=== PATIENT | male | born 1960 ===

== ENCOUNTER 2016-10-03 11:03 | Day surgery (SDC) | payer OTHER ==
[2016-10-03] MEDS ORDERED: BUPIVACAINE HCL 0.5% MPF 10 ML SOL ONE (11:55)
[2016-10-03] MEDS: TRIAMCINOLONE ACETONIDE 40 MG/ML SUS ONE ×2 (12:07→12:14)
[2016-10-03 12:27] VITALS: BP 136/77; PULSE 68; RESP 18; O2SAT 95
== END 2016-10-03 12:29 | disposition home or self-care (01) ==
LOC: SURG 11:03
PROVIDERS: ATTEND Nurse Anesthetist, Certified Registered
DX: M12.88 Other specific arthropathies, not elsewhere classified, other specified site (principal); M54.5 Low back pain
CPT/HCPCS: 64493; 77003; J3300

== ENCOUNTER 2016-11-07 11:47 | Day surgery (SDC) | payer OTHER ==
[2016-11-07 12:20] VITALS: RESP 16
[2016-11-07] MEDS ORDERED: TRIAMCINOLONE ACETONIDE 40 MG/ML SUS ONE (12:54)
[2016-11-07] MEDS ORDERED: BUPIVACAINE HCL 0.5% MPF 10 ML SOL ONE (12:54)
[2016-11-07] MEDS ORDERED: LIDOCAINE HCL 1% MPF SOL ONE (12:54)
[2016-11-07 13:19] VITALS: BP 135/82; PULSE 65; TEMP 97.6; O2SAT 97
== END 2016-11-07 13:23 | disposition home or self-care (01) ==
LOC: SURG 11:47
PROVIDERS: ATTEND Nurse Anesthetist, Certified Registered
DX: M54.5 Low back pain (principal); M12.88 Other specific arthropathies, not elsewhere classified, other specified site
CPT/HCPCS: 64493; 64494; 64495; 77003; J2001; J3300

== ENCOUNTER 2016-12-27 10:25 | Day surgery (SDC) | payer OTHER ==
[2016-12-27 10:42] VITALS: TEMP 97.6
[2016-12-27] MEDS ORDERED: TRIAMCINOLONE ACETONIDE 40 MG/ML SUS ONE (10:46)
[2016-12-27] MEDS ORDERED: LIDOCAINE HCL 1% MPF SOL ONE (10:47)
[2016-12-27] MEDS ORDERED: BUPIVACAINE HCL 0.5% MPF 10 ML SOL ONE (10:47)
[2016-12-27 11:29] VITALS: BP 134/84; PULSE 75; RESP 20; O2SAT 95
== END 2016-12-27 11:33 | disposition home or self-care (01) ==
LOC: SURG 10:25
PROVIDERS: ATTEND Nurse Anesthetist, Certified Registered
DX: M12.88 Other specific arthropathies, not elsewhere classified, other specified site (principal)
CPT/HCPCS: 64493; 64494; 64495; 77003; J2001; J3300

== ENCOUNTER 2017-04-13 10:59 | Day surgery (SDC) | payer OTHER ==
[2017-04-13] MEDS ORDERED: BUPIVACAINE HCL 0.25% MPF 10 ML SOL INFIL ONE (12:06)
[2017-04-13] MEDS ORDERED: LIDOCAINE HCL 1% MPF SOL ONE (12:07)
[2017-04-13] MEDS: DEXAMETHASONE SOD PHOS PF 10 MG/ML SOL IJ ONE ×2 (12:27→12:39)
[2017-04-13 12:55] VITALS: BP 128/89; PULSE 68; RESP 20; TEMP 97.1; O2SAT 96
== END 2017-04-13 13:00 | disposition home or self-care (01) ==
LOC: SURG 10:59
PROVIDERS: ATTEND Nurse Anesthetist, Certified Registered
DX: M12.88 Other specific arthropathies, not elsewhere classified, other specified site (principal)
CPT/HCPCS: J1100; J2001

== ENCOUNTER 2017-05-08 13:27 | Day surgery (SDC) | payer OTHER ==
[2017-05-08 13:57] VITALS: RESP 16
[2017-05-08] MEDS ORDERED: LIDOCAINE HCL 1% MPF SOL ONE (14:16)
[2017-05-08] MEDS ORDERED: BUPIVACAINE HCL 0.25% MPF 10 ML SOL INFIL ONE (14:16)
[2017-05-08 15:04] VITALS: BP 132/84; PULSE 77; TEMP 99.3; O2SAT 95
== END 2017-05-08 15:15 | disposition home or self-care (01) ==
LOC: SURG 13:27
PROVIDERS: ATTEND Nurse Anesthetist, Certified Registered
DX: M12.88 Other specific arthropathies, not elsewhere classified, other specified site (principal)
CPT/HCPCS: J2001

== ENCOUNTER 2017-10-23 14:04 | Day surgery (SDC) | payer OTHER ==
[2017-10-23] MEDS ORDERED: LIDOCAINE HCL 2% MPF 10 ML SOL ONE (14:25)
[2017-10-23] MEDS ORDERED: BUPIVACAINE HCL 0.5% MPF 10 ML SOL ONE (14:25)
[2017-10-23 15:21] VITALS: RESP 20; TEMP 98; O2SAT 96
[2017-10-23 15:29] VITALS: BP 179/97; PULSE 70
== END 2017-10-23 15:30 | disposition home or self-care (01) ==
LOC: SURG 14:04
PROVIDERS: ATTEND Nurse Anesthetist, Certified Registered
DX: M12.88 Other specific arthropathies, not elsewhere classified, other specified site (principal)

== ENCOUNTER 2017-12-11 12:06 | Day surgery (SDC) | payer OTHER ==
[2017-12-11] MEDS ORDERED: TRIAMCINOLONE ACETONIDE 40 MG/ML SUS ONE (13:13)
[2017-12-11] MEDS ORDERED: BUPIVACAINE HCL 0.25% MPF 30 ML SOL INFIL ONE (13:13)
[2017-12-11] MEDS ORDERED: LIDOCAINE HCL 1% MPF 30 SOL ONE (13:13)
[2017-12-11] MEDS ORDERED: LIDOCAINE HCL 2% MPF 10 ML SOL ONE (13:14)
[2017-12-11] MEDS: MIDAZOLAM 2 MG/2 ML SOL ONE ×2 (13:20→13:45)
[2017-12-11] MEDS: FENTANYL 100MCG/2ML SOL ONE ×2 (13:20→14:04)
[2017-12-11 14:26] VITALS: BP 132/80; PULSE 76; RESP 18; TEMP 97.9; O2SAT 93
== END 2017-12-11 14:47 | disposition home or self-care (01) ==
LOC: SURG 12:06
PROVIDERS: ATTEND Nurse Anesthetist, Certified Registered
DX: M12.88 Other specific arthropathies, not elsewhere classified, other specified site (principal)
CPT/HCPCS: J2250; J3010; J2001; J3300

== ENCOUNTER 2018-09-03 12:03 | Day surgery (SDC) | payer OTHER ==
[2018-09-03] MEDS ORDERED: LIDOCAINE HCL 2% MPF 10 ML SOL ONE (12:40)
[2018-09-03] MEDS ORDERED: BUPIVACAINE HCL 0.25% MPF 30 ML SOL INFIL ONE (12:41)
[2018-09-03] MEDS ORDERED: LIDOCAINE HCL 1% MPF 30 SOL ONE (12:41)
[2018-09-03] MEDS ORDERED: TRIAMCINOLONE ACETONIDE 40 MG/ML SUS ONE (12:41)
[2018-09-03] MEDS ORDERED: FENTANYL 250 MCG/ 5ML SOL ONE (12:44)
[2018-09-03] MEDS: FENTANYL 100MCG/2ML SOL ONE ×2 (13:00→13:28)
[2018-09-03] MEDS ORDERED: SODIUM CHLORIDE 0.9% FLUSH 10 ML SOL IV ONE ×4 (13:01→13:46)
[2018-09-03] MEDS: MIDAZOLAM 2 MG/2 ML SOL ONE ×2 (13:01→13:15)
[2018-09-03] MEDS ORDERED: FENTANYL 100MCG/2ML SOL ONE (13:43)
[2018-09-03 13:48] VITALS: O2SAT 95
[2018-09-03 14:06] VITALS: BP 141/88; PULSE 86; RESP 16; TEMP 98.6
== END 2018-09-03 14:29 | disposition home or self-care (01) ==
LOC: SURG 12:03
PROVIDERS: ATTEND Nurse Anesthetist, Certified Registered
DX: M12.88 Other specific arthropathies, not elsewhere classified, other specified site (principal)
CPT/HCPCS: J2250; J3010; J2001; J3300